=== PATIENT | male | born 1980 | race Caucasian/White ===

== ENCOUNTER 2024-03-07 06:39 | Day surgery (SDC) | payer BC ==
[~2024-03-07] VITALS: Ht 167.6 cm; Wt 146.1 kg
[2024-03-07] MEDS ORDERED: MIDAZOLAM HCL 5 MG/5 ML VIAL ONE ×2 (07:14→09:03)
[2024-03-07] MEDS ORDERED: MEPERIDINE 100 MG INJ. 100 MG/ML VIAL ONE (07:14)
[2024-03-07 13:27] VITALS: BP_SYST 185; PULSE 71; RESP 18; TEMP 97.7; O2SAT 97
== END 2024-03-07 09:58 | disposition home or self-care (01) ==
LOC: SMU 06:39 → SDS 06:39
PROVIDERS: ATTEND Student in an Organized Health Care Education/Training Program
DX: R19.7 Diarrhea, unspecified (principal); D12.4 Benign neoplasm of descending colon; D12.5 Benign neoplasm of sigmoid colon; D12.0 Benign neoplasm of cecum; K57.30 Diverticulosis of large intestine without perforation or abscess without bleeding; K64.4 Residual hemorrhoidal skin tags; K64.8 Other hemorrhoids; I10 Essential (primary) hypertension; E11.9 Type 2 diabetes mellitus without complications; E78.5 Hyperlipidemia, unspecified; Z79.84 Long term (current) use of oral hypoglycemic drugs; Z79.899 Other long term (current) drug therapy; Z88.8 Allergy status to other drugs, medicaments and biological substances; Z95.4 Presence of other heart-valve replacement; Z98.890 Other specified postprocedural states
CPT/HCPCS: 45380; 45385; 99152; 82948; 88305; 99153; G0378; J2250; J2175